=== PATIENT | female | born 2005 | race Caucasian/White ===

== ENCOUNTER → 2023-09-05 13:10 | Outpatient (CLI) | payer OTHER, SELFPAY ==
[2023-09-05 14:34] LABS: Natera Collection Specimen Collected
== END ==
PROVIDERS: Referring Provider Family Medicine; Visit Provider Family Medicine
DX: O99.342 Other mental disorders complicating pregnancy, second trimester (principal)
CPT/HCPCS: 36415

== ENCOUNTER 2023-09-13 10:44 | Emergency (ER) | payer OTHER, SELFPAY ==
[2023-09-13 11:03] VITALS: BP 117/69; PULSE 74; RESP 14; TEMP 36.3; O2SAT 99; BMI 31.0
--- NOTE | 2023-09-13 11:06 | DI.US.S_ITS ---
PROCEDURE: US OB >= 14 WEEKS FETUS LIMITED INDICATIONS: lower back/pelvic pain,15 weeks OUTSIDE/PRIOR DATING DATA: Last menstrual period (LMP): August 28, 2023. LMP-based estimated date of delivery (PAM): March 04, 2024. First dating scan (date and location): Reported as July 20, 2023. Estimated date of delivery (PAM) from first dating scan: Not available. TECHNIQUE: Real-time scanning was performed of the fetus, with image documentation and biometric measurements. Endovaginal scanning: Perform COMPARISON: None. FINDINGS: General: A single living intrauterine gestation is present. Presentation: Breech Placenta: Placental position is anterior, without previa. Amniotic fluid index: Not evaluated. . heart rate: 144 beats per minute. Maternal cervical canal: Closed and 4.2 cm long. Normal lower limit is 2.5 cm. Clinically estimated gestational age: 15 weeks 2 days. IMPRESSION: Single living intrauterine . No evidence of placental abruption. Closed maternal cervix. Dictated by: Nery Honeycutt MD, PhD on 09/13/2023 at 12:34 Approved by: Nery Honeycutt MD, PhD on 09/13/2023 at 12:37
[2023-09-13 11:31] LABS: Add Manual Diff / Slide Review NO; Basophils Absolute Auto 100 /uL (0-100); Basophils Percent Auto 0.6 % (0-2); Eosinophils Absolute Auto 100 /uL (0-450); Eosinophils Percent Auto 1.1 % (2-4); Hematocrit 37.9 % (36-46); Hemoglobin 13.3 g/dL (12.0-16.0); Lymphocytes Absolute Auto 1600 /uL (1100-4500); Lymphocytes Percent Auto 15.3 % (25-40); Mean Corpuscular HGB Conc 35.1 % (30-36); Mean Corpuscular Hemoglobin 30.5 PG (26-34); Mean Corpuscular Volume 86.9 fL (80-100); Monocytes Absolute Auto 600 /uL (0-900); Monocytes Percent Auto 5.9 % (3-14); Neutrophils Absolute Auto 8200 /uL (1500-7000); Neutrophils Percent Auto 77.1 % (50-75); Platelet Count 337 X10^3/uL (150-400); Red Blood Cell Count 4.36 X10^6/uL (4.0-5.2); White Blood Cell Count 10.7 X10^3/uL (4.5-11.0)
[2023-09-13 11:47] LABS: Alanine Aminotransferase 16 IU/L (<35); Albumin Globulin Ratio 1.3 (1.0-2.8); Alkaline Phosphatase 91 U/L (38-126); Aspartate Aminotransferase 26 IU/L (14-36); BUN Creatinine Ratio 15.3 (6-22); Bilirubin Total 0.4 mg/dL (0.2-1.3); Blood Urea Nitrogen 9 mg/dL (7-17); Calcium 9.5 mg/dL (8.4-10.2); Carbon Dioxide 25 mmol/L (22-32); Chloride 103 mmol/L (98-107); Estimated Glomerular Filt Rate > 60 mL/min (>60); Globulin 3.1 g/dL (1.7-4.1); Glucose 80 mg/dL (70-100); HEMOLYSIS < 15 (0-50); Potassium 4.6 mmol/L (3.4-5.1); Sodium 134 mmol/L (137-145); Total Protein 7.1 g/dL (6.3-8.2)
[2023-09-13 12:29] LABS: HCG Quantitative /Beta subunit 40555 mIU/mL
[2023-09-13 13:21] VITALS: BP 111/67; PULSE 68; RESP 14; O2SAT 98
--- NOTE | 2023-09-13 17:21 | ED_ITS ---
HPI - <Ella Aden PA-C - Last Filed: 09/13/23 17:35> General Chief complaint: Vaginal Bleeding Stated complaint: 15wks , back pain, cramping Time Seen by Provider: 09/13/23 11:16 Source: patient Mode of arrival: Ambulatory Limitations: no limitations History of Present Illness HPI Narrative: 18-year-old female who is 15 weeks presents to the ED with a few days of pelvic pain. Patient denies any recent vaginal bleeding or spotting. Patient states she did have 1 instance of vaginal spotting 2 weeks ago which discussed with her OBGYN doctor Dr. Humphrey with no further action. Patient also endorses some lower back pain. Patient denies fever, chills, nausea, vomiting, chest pain, shortness of breath. Related Data Home Medications Medication Instructions Recorded Confirmed vit 168-iron 27 mg-folic cap PO 09/01/23 09/05/23 acid 800 mcg-omega3 235 mg capsule (One-A-Day -1) Allergies Allergy/AdvReac Type Severity Reaction Status Date / Time No Known Drug Allergies Allergy Verified 09/13/23 11:03 Review of Systems <Ella Aden PA-C - Last Filed: 09/13/23 17:35> Constitutional Constitutional: Denies chills, Denies fatigue, Denies fever(s), Denies frequent falls, Denies lethargy and Denies weakness Eyes Eyes: Denies change in vision, Denies eye discharge, Denies irritation and Denies loss of vision ENT Ears, Nose, Mouth, and Throat: Denies change in voice, Denies dizziness, Denies neck pain, Denies sore throat and Denies throat swelling Cardiovascular Cardiovascular: Denies chest pain, Denies irregular heart rhythm, Denies lightheadedness, Denies palpitations, Denies dyspnea, Denies dyspnea on exertion and Denies orthopnea Respiratory Respiratory: Denies cough, Denies dyspnea, Denies dyspnea on exertion and Denies wheezing Gastrointestinal Gastrointestinal: Denies abdominal pain, Denies change in bowel habits, Denies diarrhea, Denies nausea and Denies vomiting Genitourinary Genitourinary: Reports pelvic pain Musculoskeletal Musculoskeletal: Reports back pain, Denies neck pain and Denies numbness Integumentary/Breasts Skin/Breast: Denies pruritus, Denies erythema, Denies rash and Denies wounds Neurologic Neurologic: Denies behavioral changes, Denies confusion, Denies dizziness, Denies frequent falls, Denies loss of vision, Denies numbness and Denies weakness Psychiatric Psychiatric: Denies anxiety, Denies behavioral changes, Denies confusion, Denies depression, Denies homicidal ideation and Denies suicidal ideation Endocrine Endocrine: Denies fatigue, Denies flushing and Denies palpitations Hematologic/Lymphatic Hematologic/Lymphatic: Denies easy bruising Allergic/Immunologic Allergic/Immunologic: Denies urticaria, Denies throat swelling and Denies wheezing Exam <Ella Aden PA-C - Last Filed: 09/13/23 17:35> Narrative Exam Narrative: Const General:?cooperative, healthy appearing and comfortable [facility] Head:?normal to inspection Ears:?hearing grossly normal bilaterally Nose:?external nose normal Face and sinus:?normal facial exam and sinuses nontender Mouth:?oral mucosae normal Throat:?posterior oropharynx normal Eyes General:?appearance normal, both eyes and all related structures Neck Neck:?normal visual inspection and no lymphadenopathy noted Resp Effort & Inspection:?normal respiratory effort Auscultation:?clear to auscultation bilaterally Cardio Rate:?regular rate Rhythm:?regular rhythm GI Abdomen is soft, nondistended. There is mild tenderness to palpation in the pelvic region. Neuro General:?patient alert, patient awake and patient oriented x3 Initial Vital Signs Initial Vital Signs: Vital Signs Temperature 97.4 F L 09/13/23 11:03 Pulse Rate 74 09/13/23 11:03 Respiratory Rate 14 09/13/23 11:03 Blood Pressure 117/69 09/13/23 11:03 Pulse Oximetry 99 09/13/23 11:03 Oxygen Delivery Method Room Air 09/13/23 11:03 <Miguelina Morgan DO - Last Filed: 09/14/23 07:57> Initial Vital Signs Initial Vital Signs: Vital Signs Temperature 97.4 F L 09/13/23 11:03 Pulse Rate 74 09/13/23 11:03 Respiratory Rate 14 09/13/23 11:03 Blood Pressure 117/69 09/13/23 11:03 Pulse Oximetry 99 09/13/23 11:03 Oxygen Delivery Method Room Air 09/13/23 11:03 Course <GIANA Leigh Last Filed: 09/13/23 17:35> Orders Ordered: ED Orders 09/13/23 11:06 US OB >= 14 weeks Fetus Stat 09/13/23 11:17 Complete Blood Count AUTO DIFF Stat Comprehensive Metabolic Panel Stat HCG Quantitative /Beta subunit Stat Type and Screen Stat Vital Signs Vital signs: Vital Signs - 8 hr 09/13/23 11:03 09/13/23 13:21 Temperature 97.4 F L Pulse Rate 74 68 Respiratory Rate 14 14 Blood Pressure 117/69 111/67 Pulse Oximetry 99 98 Oxygen Delivery Method Room Air Room Air <Miguelina Morgan DO - Last Filed: 09/14/23 07:57> Orders Ordered: ED Orders 09/13/23 11:06 US OB >= 14 weeks Fetus Stat 09/13/23 11:17 Complete Blood Count AUTO DIFF Stat Comprehensive Metabolic Panel Stat HCG Quantitative /Beta subunit Stat Type and Screen Stat Vital Signs Vital signs: Vital Signs - 8 hr 09/13/23 11:03 09/13/23 13:21 Temperature 97.4 F L Pulse Rate 74 68 Respiratory Rate 14 14 Blood Pressure 117/69 111/67 Pulse Oximetry 99 98 Oxygen Delivery Method Room Air Room Air MDM - OB/Uterine Contractions <Ella Aden PA-C - Last Filed: 09/13/23 17:35> Lab Data 09/13/23 11:17 09/13/23 11:17 Labs: Lab Results 09/13/23 Range/Units 11:17 WBC 10.7 (4.5-11.0) X10^3/uL RBC 4.36 (4.0-5.2) X10^6/uL Hgb 13.3 (12.0-16.0) g/dL Hct 37.9 (36-46) % MCV 86.9 (80-100) fL MCH 30.5 (26-34) PG MCHC 35.1 (30-36) % RDW 15.0 H (11.6-14.8) % Plt Count 337 (150-400) X10^3/uL Neut % (Auto) 77.1 H (50-75) % Lymph % (Auto) 15.3 L (25-40) % [place] % (Auto) 5.9 (3-14) % Eos % (Auto) 1.1 L (2-4) % Baso % (Auto) 0.6 (0-2) % Neut # (Auto) 8200 H (9029-1369) /uL Lymph # (Auto) 1600 (1966-7604) /uL [place] # (Auto) 600 (0-900) /uL Eos # (Auto) 100 (0-450) /uL Baso # (Auto) 100 (0-100) /uL Sodium 134 L (137-145) mmol/L Potassium 4.6 (3.4-5.1) mmol/L Chloride 103 (98-107) mmol/L Carbon Dioxide 25 (22-32) mmol/L BUN 9 (7-17) mg/dL Creatinine 0.59 (0.52-1.04) mg/dL Estimated GFR > 60 (>60) mL/min BUN/Creatinine Ratio 15.3 (6-22) Glucose 80 (70-100) mg/dL Calcium 9.5 (8.4-10.2) mg/dL Total Bilirubin 0.4 (0.2-1.3) mg/dL AST 26 (14-36) IU/L ALT 16 (<35) IU/L Alkaline Phosphatase 91 (38-126) U/L Total Protein 7.1 (6.3-8.2) g/dL Albumin 4.0 (3.5-5.0) g/dL Globulin 3.1 (1.7-4.1) g/dL Albumin/Globulin Ratio 1.3 (1.0-2.8) HCG, Quant 20492 mIU/mL Blood Type O Positive Antibody Screen Negative Urine Dip Bedside Urine Glucose Negative Bedside Urine Bilirubin - Negative Bedside Urine Ketone - Negative Urine Specific [place] 1.005 Bedside Urine Occult Blood - Negative Bedside Urine pH 6.0 Bedside Urine Protein - Negative Bedside Urine Urobilinogen - Negative Bedside Urine Nitrite - Negative Bedside Urine Leukocytes - Negative Esterase MDM Narrative Medical decision making narrative: 18-year-old female who is 15 weeks presents to the ED with a few days of pelvic pain. Labs, hCG, type and screen, UA and ultrasound were obtained. Labs within normal limits. Urine without UTI. HCG quant is 40,555. Patient is blood type O positive. ultrasound shows a single live intrauterine with a heartbeat of 144 beats per minute. No evidence of placental abruption. Closed maternal cervix. Clinically estimated gestational age is 15 weeks and 2 days. Discussed findings with patient and that some pelvic discomfort and back pain could happened during a normal . Also discussed other etiologies of abdominal pain such as appendicitis that could be developing. Recommend continuing to monitor symptoms and return to the ED if worsening symptoms. Patient agrees to follow-up with OBGYN as soon as possible. Medical records reviewed: Yes <Miguelina Maria Luisa Morgan DO - Last Filed: 09/14/23 07:57> Lab Data Labs: Lab Results 09/13/23 Range/Units 11:17 WBC 10.7 (4.5-11.0) X10^3/uL RBC 4.36 (4.0-5.2) X10^6/uL Hgb 13.3 (12.0-16.0) g/dL Hct 37.9 (36-46) % MCV 86.9 (80-100) fL MCH 30.5 (26-34) PG MCHC 35.1 (30-36) % RDW 15.0 H (11.6-14.8) % Plt Count 337 (150-400) X10^3/uL Neut % (Auto) 77.1 H (50-75) % Lymph % (Auto) 15.3 L (25-40) % [place] % (Auto) 5.9 (3-14) % Eos % (Auto) 1.1 L (2-4) % Baso % (Auto) 0.6 (0-2) % Neut # (Auto) 8200 H (5483-4319) /uL Lymph # (Auto) 1600 (3527-1996) /uL [place] # (Auto) 600 (0-900) /uL Eos # (Auto) 100 (0-450) /uL Baso # (Auto) 100 (0-100) /uL Sodium 134 L (137-145) mmol/L Potassium 4.6 (3.4-5.1) mmol/L Chloride 103 (98-107) mmol/L Carbon Dioxide 25 (22-32) mmol/L BUN 9 (7-17) mg/dL Creatinine 0.59 (0.52-1.04) mg/dL Estimated GFR > 60 (>60) mL/min BUN/Creatinine Ratio 15.3 (6-22) Glucose 80 (70-100) mg/dL Calcium 9.5 (8.4-10.2) mg/dL Total Bilirubin 0.4 (0.2-1.3) mg/dL AST 26 (14-36) IU/L ALT 16 (<35) IU/L Alkaline Phosphatase 91 (38-126) U/L Total Protein 7.1 (6.3-8.2) g/dL Albumin 4.0 (3.5-5.0) g/dL Globulin 3.1 (1.7-4.1) g/dL Albumin/Globulin Ratio 1.3 (1.0-2.8) HCG, Quant 27154 mIU/mL Blood Type O Positive Antibody Screen Negative Urine Dip Bedside Urine Glucose Negative Bedside Urine Bilirubin - Negative Bedside Urine Ketone - Negative Urine Specific [place] 1.005 Bedside Urine Occult Blood - Negative Bedside Urine pH 6.0 Bedside Urine Protein - Negative Bedside Urine Urobilinogen - Negative Bedside Urine Nitrite - Negative Bedside Urine Leukocytes - Negative Esterase Discharge Plan Departure Patient Disposition: Home Clinical Impression: Pelvic pain during Instructions: DI for Abdominal Pain -- Early Activity Restrictions/Additional Instructions: You were evaluated in the ED today for pelvic pain during . Your ultrasound was normal showing a single living with a heartbeat of 144 beats per minute. It is common to experience some pelvic pain and back pain during as your body adapts. Please monitor your pain and return to the ED if you have worsening symptoms. Please follow-up with your OBGYN. Prescriptions: No Action One-A-Day -1 27 mg iron- 800 mcg-235 mg capsule PO Referrals: ProviderTania [Primary Care Provider] - Stand Alone Forms: Patient Portal/API ED Sign-out <Miguelina Morgan DO - Last Filed: 09/14/23 07:57> Cosign ED Attending Maribell Attestation: I was immediately available in the department for consultation.
== END 2023-09-13 13:22 | disposition home or self-care (01) ==
PROVIDERS: Emergency Medicine; Emergency Provider Student in an Organized Health Care Education/Training Program
DX: O26.892 Other specified pregnancy related conditions, second trimester (principal); R10.2 Pelvic and perineal pain; Z3A.15 15 weeks gestation of pregnancy
CPT/HCPCS: 76811; 80053; 81003; 84702; 85025; 86850; 86900; 86901; 99281; 99284

== ENCOUNTER → 2023-10-12 10:55 | Outpatient (CLI) | payer OTHER, SELFPAY ==
--- NOTE | 2023-10-12 10:56 | DI.US.S_ITS ---
PROCEDURE: US OB >= 14 WEEKS FETUS INDICATIONS: Anatomy US OUTSIDE/PRIOR DATING DATA: Last menstrual period (LMP): 08/28/2023. LMP-based estimated date of delivery (PAM): 03/04/2024. First dating scan (date and location): Unknown. Estimated date of delivery (PAM) from first dating scan: Unknown. The calculations are made using the clinical PAM of 03/04/2024. TECHNIQUE: Real-time scanning was performed of the fetus, with image documentation and biometric measurements. COMPARISON: [facility], , OB >= 14 WEEKS FETUS, 09/13/2023, 11:34. FINDINGS: General: A single living intrauterine gestation is present. Presentation: Very. Placenta: Placental position is anterior , without previa. Amniotic fluid index: 14.2 cm, normal range is 5-24 cm. Single deepest vertical pocket is 4.1 cm. heart rate: 153 beats per minute. Maternal cervical canal: 5.1 cm long. Normal lower limit is 2.5 cm. biometrics: Biparietal diameter: 4.7 cm 20 weeks 2 days Head circumference: 17.3 cm 19 weeks 6 days Abdominal circumference: 15.1 cm 20 weeks 3 days Femur length: 2.8 cm 18 weeks 4 days Clinically estimated gestational age: 19 weeks 3 days Composite gestational age from present scan: 19 weeks 6 days Estimated weight and percentile: 302 g 56 percentile Anatomic survey: Neuro: Ventricles are non-dilated at less than 10 mm. Cisterna magna is normal at 3-11 mm. Cerebellum is normal in size and morphology. Nuchal skin fold: Normal at less than 6 mm between 14-21 weeks gestational age. Face: Nose and lips, facial profile are normal. Spine: No evidence for spina bifida. Heart: 4-chambered heart is present, with normal ventricular outflow tracts. Diaphragm: Diaphragm is intact. Stomach: Left-sided stomach is present. Kidneys: No hydronephrosis although renal pelvis is at the upper limits of normal.. Normal is less than 5 mm in 2nd trimester, less than 7 mm in 3rd trimester. Cord: 3-vessel cord has orthotopic insertion. Bladder: Normal in size. Extremities: All 4 extremities identified. IMPRESSION: Single live intrauterine with ultrasound gestational age of 19 weeks 6 days. We strive to produce accurate, complete, and clear reports of imaging services. To assist us in improving patient care, this report was composed using standard report templates and voice recognition software. Therefore, it may contain abnormal punctuation, insertions and/or omissions. Occasional wrong-word or sound-alike substitutions may occur. Though we review the report and make efforts to correct it, we do recommend that the report be read carefully in proper context to recognize any text inaccuracies. Dictated by: Maeve Diana M.D. on 10/12/2023 at 16:01 Approved by: Maeve Diana M.D. on 10/12/2023 at 16:06
== END ==
LOC: US 10:55
PROVIDERS: Referring Provider Family Medicine; Visit Provider Family Medicine
DX: Z34.00 Encounter for supervision of normal first pregnancy, unspecified trimester (principal); Z3A.19 19 weeks gestation of pregnancy
CPT/HCPCS: 76811

== ENCOUNTER → 2023-12-05 12:21 | Outpatient (CLI) | payer OTHER, SELFPAY ==
[2023-12-06 12:14] LABS: Varicella IgG Antibody Reactive (Non Reactive)
== END ==
PROVIDERS: Referring Provider Family Medicine; Visit Provider Family Medicine
DX: Z34.00 Encounter for supervision of normal first pregnancy, unspecified trimester (principal)
CPT/HCPCS: 36415; 86787

== ENCOUNTER → 2023-12-26 09:06 | Outpatient (CLI) | payer OTHER, SELFPAY ==
[2023-12-26 11:24] LABS: GTT (PREG) 1 Hour PP 50gm Dose 118 mg/dL (76-139)
== END ==
PROVIDERS: Referring Provider Family Medicine; Visit Provider Family Medicine
DX: Z34.03 Encounter for supervision of normal first pregnancy, third trimester (principal); Z3A.30 30 weeks gestation of pregnancy
CPT/HCPCS: 82950

== ENCOUNTER → 2024-01-23 12:03 | Outpatient (CLI) | payer OTHER, SELFPAY | PROVIDERS: Visit Provider Family Medicine | DX: N89.8 Other specified noninflammatory disorders of vagina (principal) | CPT/HCPCS: 87081; 87210; 87491; 87563; 87591 ==

== ENCOUNTER → 2024-02-06 11:31 | Outpatient (CLI) | payer OTHER, SELFPAY ==
[2024-02-07 11:42] LABS: Strep Grp B PCR NEG for Grp B Strep
== END ==
PROVIDERS: Visit Provider Family Medicine
DX: Z36.85 Encounter for antenatal screening for Streptococcus B (principal)
CPT/HCPCS: 87653

== ENCOUNTER 2024-03-02 14:00 | Observation (INO) | payer OTHER, SELFPAY ==
--- NOTE | 2024-03-02 18:22 | P.TNLD_ITS ---
Visit Information Visit Information Date of evaluation: 03/02/24 Primary OB Provider: Lily Humphrey Reason for Evaluation: Yes rule out labor Comments/Additional reasons for admission: 19 yo G1 presenting at 39w5d for labor rule out. Contractions occuring every 5 min. + FM. Some discharge but not large gushes of fluid. [facility] Surgical History (Updated 09/01/23 @ 15:36 by Leticia Tolliver, RN) [place] teeth extracted (~2022) History of ankle surgery (~2021) Family History (Updated 09/01/23 @ 15:40 by Leticia Tolliver, RN) Mother Heart disease Osteoporosis Grandfather Heart disease Colon cancer Father Diabetes mellitus Uncle Diabetes mellitus Grandmother DVT (deep venous thrombosis) Breast cancer Social History marital status: unmarried,single number of children: 0 household members: significant other lives independently: Yes caregiver/support person: No housing: other pets and animals: No education level: other occupational status: employed current occupational exposures/hazards: No (not while ) special noam needs: No travel history: recent seatbelt use: always water heater temp set < 120 deg: Yes firearms in home: No do you feel safe at home: Yes Smoking Status: Never smoker second hand exposure: No alcohol intake: never substance use type: does not use during the past year weight has: remained stable well-balanced diet: about half the time daily servings fruits/ve-4 caffeine: Yes Type(s) of exercise: walking, weight lifting and running Exam Narrative Exam Narrative: Gen: well appearing, NAD, smiling, talking through contractions Skin: no rashes or pallor Abd: Gravid MSK: scant edema Evaluation Evaluation Baseline heart rate: 130 Variability: Moderate (11-25) monitor accelerations: Present Monitor Decelerations: Absent Contraction Frequency (minutes): 9 Uterine Contraction Intensity: Mild Category of Tracing: Reactive Status: Category l Cervical dilation (cm): 2 Cervical effacement (%): 50 station: -2 Diagnosis, Plan/Disposition Plan/Disposition Plan: 19 yo G1 presenting for labor assessment. Cervical check 50/-2, pt walked for 2 hours and SVE unchanged. FHT Cat 1, TOCO showing irregular contractions every 5-10 min. Pt talking through contractions. - d/c home - return precautions reviewed OB Disposition: home
== END 2024-03-02 18:21 | disposition home or self-care (01) ==
PROVIDERS: Admitting Provider Family Medicine; Referring Provider Family Medicine; Visit Provider Family Medicine
DX: O47.1 False labor at or after 37 completed weeks of gestation (principal); Z3A.39 39 weeks gestation of pregnancy
CPT/HCPCS: 59025; 84112; G0378; G0379

== ENCOUNTER 2024-03-05 16:47 | Observation (INO) | payer OTHER, SELFPAY | END 2024-03-05 18:58 | disposition home or self-care (01) | LOC: LABOR 16:49 | PROVIDERS: Admitting Provider Family Medicine; Referring Provider Family Medicine; Visit Provider Family Medicine | DX: O47.1 False labor at or after 37 completed weeks of gestation (principal); Z3A.40 40 weeks gestation of pregnancy | CPT/HCPCS: 59025; 59050; G0378; G0379 ==

== ENCOUNTER 2024-03-05 21:40 | Inpatient (IN) | payer OTHER, SELFPAY ==
[2024-03-05 22:36] VITALS: BP 129/85
[2024-03-05] MEDS: LACTATED RINGERS 1,000 ML 100 ML IV (23:00)
[2024-03-05 23:12] LABS: Add Manual Diff / Slide Review NO; Basophils Absolute Auto 100 /uL (0-100); Basophils Percent Auto 0.7 % (0-2); Eosinophils Absolute Auto 200 /uL (0-450); Eosinophils Percent Auto 1.2 % (2-4); Hematocrit 38.1 % (36-46); Hemoglobin 12.6 g/dL (12.0-16.0); Lymphocytes Absolute Auto 2500 /uL (1100-4500); Lymphocytes Percent Auto 18.1 % (25-40); Mean Corpuscular HGB Conc 33.1 % (30-36); Mean Corpuscular Hemoglobin 28.7 PG (26-34); Mean Corpuscular Volume 86.7 fL (80-100); Monocytes Absolute Auto 900 /uL (0-900); Monocytes Percent Auto 6.8 % (3-14); Neutrophils Absolute Auto 9900 /uL (1500-7000); Neutrophils Percent Auto 73.2 % (50-75); Platelet Count 310 X10^3/uL (150-400); Red Cell Distribution Width 15.9 % (11.6-14.8); White Blood Cell Count 13.6 X10^3/uL (4.5-11.0)
--- NOTE | 2024-03-06 00:40 | PM.AN.REGBLK ---
Regional [facility] <Karen Javier CRNA - Last Filed: 03/07/24 08:18> Pre-procedure Procedure: Continuous Lumbar Epidural for L&D Attending OB provider: Celina Ramsey PMH/ROS narrative: , ruptured, spontaneous labor. ROS neg PSH/Anesthesia history narrative: None Exam narrative: Mall 2, good airway ASA Class: II Labs: Hct 38.1 % (36-46) 03/05/24 23:00 Plt Count 310 X10^3/uL (150-400) 03/05/24 23:00 Medications: Current Medications Generic Name Dose Route Start Last Admin Trade Name Freq PRN Reason Stop Dose Admin Calcium Carbonate 1,000 mg 03/05/24 22:35 Calcium Carbonate 500 Mg Tab PO Q2HR PRN Dyspepsia Carboprost Tromethamine 250 mcg 03/05/24 22:35 Carboprost 250 Mcg/Ml Ampul IM Q90M PRN Bleeding Fentanyl 50 mcg 03/05/24 22:35 Fentanyl 100 Mcg/2 Ml Inj IV Q1H PRN Pain, Moderate (4-6) Lactated Ringer's 1,000 mls @ 100 mls/hr 03/05/24 22:45 03/05/24 23:00 Lactated Ringers IV 03/06/24 08:44 100 mls/hr CONT BUCK Administration Oxytocin/Lactated Ringer's 30 unit in 500 mls @ 200 mls/hr 03/05/24 22:35 Oxytocin Premix IV CONT PRN Bleeding Protocol Tranexamic Acid 1,000 mg/ 100 mls @ 600 mls/hr 03/05/24 22:35 Sodium Chloride IV NOW PRN Bleeding Oxytocin/Lactated Ringer's 30 unit in 500 mls @ 2 mls/hr 03/05/24 22:45 Oxytocin Premix IV TITRATE BUCK Protocol 2 MILLIUNIT/MIN Lidocaine HCl 20 ml 03/05/24 22:35 Lidocaine 1% 20 Ml INJ INTRA-OP PRN Post Delivery Methylergonovine Maleate 0.2 mg 03/05/24 22:35 Methylergonovine 0.2 Mg Tablet PO Q6HR PRN Heavy Bleeding Methylergonovine Maleate 0.2 mg 03/05/24 22:35 Methylergonovine 0.2 Mg/Ml Vial IM NOW PRN Bleeding Mineral Oil 30 ml 03/05/24 22:35 Mineral Oil 30 Ml Udc TOP PRN PRN Version Misoprostol 800 mcg 03/05/24 22:35 Misoprostol 200 Mcg Tablet VT NOW PRN Bleeding Misoprostol 400 mcg 03/05/24 22:35 Misoprostol 200 Mcg Tablet SL NOW PRN Bleeding Naloxone HCl 0.2 mg 03/05/24 22:35 Naloxone 0.4 Mg/Ml Vial IV Q2MIN PRN Opiate Reversal Ondansetron HCl 4 mg 03/05/24 22:35 Ondansetron 4 Mg/2 Ml Inj IV Q4HR PRN Nausea And Vomiting Oxytocin 10 unit 03/05/24 22:35 Oxytocin 10 Unit/Ml Vial IM NOW PRN Bleeding Allergies: Allergies Allergy/AdvReac Type Severity Reaction Status Date / Time No Known Drug Allergies Allergy Verified 03/05/24 11:19 Procedure Insertion date: 03/05/24 Insertion time: 23:47 Prep/Local: 1% lidocaine (chloraprep skin prep, dry x 3 min) Interspace: L4-5 Patient position: sitting Needle: 17 gauge Tuohy Loss of resistance with: saline GALEN at (cm): 8 Catheter placed at SKIN (cm): 15 Catheter in SPACE (cm): 7 Sensory level: T10 Insertion: No CSF, No Blood, No Paresthesia with insertion, No Paresthesia with injection and No Test dose reaction Initial Medications TEST DOSE time: 00:06 BOLUS DOSE time: 00:17 BOLUS DOSE (mL): 5 BOLUS DOSE med: other (pump solution) Infusion INFUSION: 0.125% bupivacaine and with fentanyl 2 mcg/mL Initial rate (mL/hr): 8 Post-procedure Anesthesia date START: 03/05/24 Anesthesia time START: 23:47 <Dalila Bloom CRNA - Last Filed: 03/06/24 13:57> Infusion Subsequent interventions: 1010: Pt using PCEA, at 9cm, c/o rectal pain with contractions, tearful. On pitocin gtt now. Increased basal rate to 10mL/hr and top off of 5mL 2% Lidocaine. 1017: Now complete. 10mL 0.25% bupi top off gven. 1352: Called for top off to assist with pain with forceps delivery by Dr. Barajas. 5mL 2% lidocaine given. Post-procedure Anesthesia date END: 03/06/24 Anesthesia time END: 13:57 Post-procedure Anesthesia Assessment: Yes CV function: HR/BP stable, Yes Resp function: RR/sat/airway adequate, Yes Post-op hydration adequate, Yes Pain control adequate, Yes Nausea & vomiting absent, Yes Temperature > 36 C, Yes Mental status appropriate and No Anesthesia complications
[2024-03-06] MEDS: AMPICILLIN 2,000 MG in SODIUM CHLORIDE 0.9% 100 ML 200 MG IV (01:24)
--- NOTE | 2024-03-06 02:03 | P.HPOB_ITS ---
OB HPI Date/Time Date of admission: 03/05/24 Date Patient Seen: 03/06/24 Time Patient Seen: 01:40 History of Present Condition Chief complaint: labor Date of Last Menstrual Period: 05/29/23 PAM Calculator 2 Estimated Delivery Date Method Current WG Current Estimate 03/04/24 LMP (Uncertain) 40w 2d Other Estimates 03/03/24 Ultrasound #1 40w 3d Estimated Gestational Age (weeks): 40w2d : 1 Para: 0 Narrative: 19 yo G1 presenting at 40w2d with contractions. She had a membrane sweep in clinic today. She was seen in triage earlier tonight at 260/-3. She then was discharged and returned and was 4-/-1 wtih a bulging bag. care: good care Dating criteria OB: LMP confirmed by 1st trimester US Ultrasounds: normal 1st trimester US and normal mid trimester US Obstetrical complications: none Medical complications OB: none Preadmission Labs Last OB Lab Results: 2 Blood Type O Positive 03/05/24 23:00 Antibody Screen Negative 03/05/24 23:00 Hct 38.1 % (36-46) 03/05/24 23:00 Hgb 12.6 g/dL (12.0-16.0) 03/05/24 23:00 VZV IgG Antibody Reactive (Non Reactive) 12/05/23 12:52 Glucose 1 Hr 50 gm 118 mg/dL (76-139) 12/26/23 10:45 Group B Strep (PCR) Neg for grp b strep 02/06/24 11:45 Glucose Tolerance Testin hr (118) -: Chlamydia screen: negative, Gonorrhea screen: negative and Urine: positive (GBS) Genetic Screens: Quad screen: Normal (low risk male ) External Labs -: RPR/VDLR: negative and Urine: positive (GBS) -: Rubella: immune and Varicella: immune Evaluation Evaluation Baseline heart rate: 120 Variability: Moderate (11-25) monitor accelerations: Present Monitor Decelerations: Variable (occassional) Contraction Frequency (minutes): 3 Category of Tracing: Reactive Status: Category ll Dilation (cm): 5 Effacement (%): 80 Dilation: >/=5 cm Effacement: >/=80% station: -1 Position of cervix: mid Consistency: soft Mcgarry score: 11 [facility] Surgical History (Updated 09/01/23 @ 15:36 by Leticia Tolliver, RN) [place] teeth extracted (~2022) History of ankle surgery (~2021) Family History (Updated 09/01/23 @ 15:40 by Leticia Tolliver, RN) Mother Heart disease Osteoporosis Grandfather Heart disease Colon cancer Father Diabetes mellitus Uncle Diabetes mellitus Grandmother DVT (deep venous thrombosis) Breast cancer Social History marital status: unmarried,single number of children: 0 household members: significant other lives independently: Yes caregiver/support person: No housing: other pets and animals: No education level: other occupational status: employed current occupational exposures/hazards: No (not while ) special noam needs: No travel history: recent seatbelt use: always water heater temp set < 120 deg: Yes firearms in home: No do you feel safe at home: Yes Smoking Status: Never smoker second hand exposure: No alcohol intake: never substance use type: does not use during the past year weight has: remained stable well-balanced diet: about half the time daily servings fruits/ve-4 caffeine: Yes Type(s) of exercise: walking, weight lifting and running Meds Home Medications and Allergies Home Medications Medication Instructions Recorded Confirmed Type vit 168-iron 27 mg-folic 1 cap PO DAILY 09/01/23 03/06/24 History acid 800 mcg-omega3 235 mg capsule (One-A-Day -1) Allergies Allergy/AdvReac Type Severity Reaction Status Date / Time No Known Drug Allergies Allergy Verified 03/05/24 11:19 Review of Systems Review of Systems Narrative: + contractions + FM - DAILEY OB Exam Narrative Exam Narrative: GEn: well appearing ABd: gravid MSK: scant edema, symmetric Objective Labs 03/05/24 23:00 Labs: Laboratory Results - last 24 hr 03/05/24 23:00 WBC 13.6 H RBC 4.40 Hgb 12.6 Hct 38.1 MCV 86.7 MCH 28.7 MCHC 33.1 RDW 15.9 H Plt Count 310 Neut % (Auto) 73.2 Lymph % (Auto) 18.1 L Taney % (Auto) 6.8 Eos % (Auto) 1.2 L Baso % (Auto) 0.7 Neut # (Auto) 9900 H Lymph # (Auto) 2500 Taney # (Auto) 900 Eos # (Auto) 200 Baso # (Auto) 100 Blood Type O Positive Antibody Screen Negative Assessment and Plan Assessment and Plan Assessment and Plan narrative: 19 yo G1 presenting at 40w2d with contractions. She is progressing well and now has an epidural in place. Will manage expectantly #GIL: - Admit to LD - CBC, TS - GBS bacteriuria in early - start ppx - epidural in place Time-Based Coding :: [TOTAL MINUTES] spent with patient and on the chart (including review of chart, obtaining history, exam, reviewing outside data, placing orders, documenting exam and treatment plan, and counseling patient) on [DATE].
[2024-03-06] MEDS: LACTATED RINGERS 1,000 ML 100 ML IV (03:39)
--- NOTE | 2024-03-06 03:39 | PM.OBPNLAB ---
Date/Time Date Patient Seen: 03/06/24 Time Patient Seen: 03:39 Pain Control Pain control: tolerating well and epidural Comments: sleeping upon entering the room, feeling some pressure. Pelvic Exam Dilation (cm): 9 Effacement (%): 80 station: -1 Amniotic membrane status: Bulging Contractions Contractions on admission: regular Monitor mode: External Contraction frequency (min): 4 Contraction pattern: Regular Contraction intensity: Moderate Status status: Category ll Heart Rate Baseline: 140 Monitor Accelerations: Present Monitor Decelerations: Early Monitor Variability: Moderate Assessment and Plan Assessment: active labor Plan: continuous present management Comments: 19 yo G1 admitted for GIL, being managed expectantly. Now /-1 with bulging bag/ 1 hour away from Gbs ppx adequate. FHt reassuring overall, with early decels occuring and good variability between. Pt comfortable with epidural, sleeping before exam. Will start next bag of abx then plan for ROM if she hasnt SROM'ed by that time.
[2024-03-06] MEDS: AMPICILLIN 1,000 MG in SODIUM CHLORIDE 0.9% 100 ML 200 MG IV ×3 (05:20→13:39)
[2024-03-06] MEDS: ONDANSETRON 4 MG/2 ML INJ IV (06:12)
--- NOTE | 2024-03-06 07:06 | PM.OBPNLAB ---
Date/Time Date Patient Seen: 03/06/24 Time Patient Seen: 07:06 Pain Control Pain control: epidural Comments: tolerating pain well [facility] epidural Pelvic Exam Dilation (cm): 9 Effacement (%): 90 station: -1 Amniotic membrane status: Ruptured Comments: AROM at 07:01, clear fluid Contractions Contractions on admission: regular Monitor mode: External Contraction frequency (min): 4 Contraction pattern: Regular Contraction intensity: Moderate Status status: Category ll Heart Rate Baseline: 140 Monitor Accelerations: Present Monitor Decelerations: Early and Variable Monitor Variability: Moderate Assessment and Plan Assessment: active labor Comments: 19 yo admitted wt GIL. She has been managed expectantly. FHT wtih early and occasional variable decels. AROM completed at 07:01 [facility] clear fluids. SVE 9/90/-1, cervix anterior and to maternal right. Will work on position changes for dropping baby down and moving towards complete. Epidural controlling pain well.
[2024-03-06] MEDS: OXYTOCIN PREMIX 30 UNIT/500 ML PLAST..BAG IV (09:05)
[2024-03-06] MEDS: ACETAMINOPHEN 325 MG TABLET 650 MG PO (09:41)
[2024-03-06] MEDS: FENT 2MCG/ML BUPIV 0.125% EPI 200 MCG/100 ML PLAST..BAG 8 MCG EPIDURAL (09:52)
--- NOTE | 2024-03-06 14:38 | PM.OBPRVD ---
Labor & Delivery Delivery date: 03/06/24 Delivery Time: 13:52 Delivery monitor: external FHT Route of delivery: vacuum extraction Indication for instrumentation: maternal exhaustion ( malposition + maternal exhaustion ) L&D Laceration Description: Labial (shallow right labial ) Delivery repair: vicryl Estimated blood loss (mL): 250 Anesthesia Type: Epidural Narrative: PROCEDURE: 19 presented with contractions at 40w2d and was admitted to Labor and Delivery. She was managed expectantly. The patient progressed and was started on GBS ppx for hx of GBS bacteriuria. AROM occured at 07:01 with clear fluid. Pain was controlled with and epidural. She progressed but contractions tapered so Pitocin was started for augmentation. She began pshing at 10:24am. She made slow but steady progress until she was . At +2 station she continued to push but had minimal descent for approximately 60 min. recurrent decelerations were noted with contractions but with good recovery so pushing was continued. After she failed to descend significantly, and with continued decelerations, decision made to place vacuum. OB lesson instructor, Dr. Barajas, called to bedside to assist. Vacuum was placed at +2-3 station. Position was JOO wtih approximately 15 degrees rotation asynclitic. There were 4 pulls with vacuum inflated to green, never exceeding 500mmHg. Four pulls were performed with no pop-offs and head delivered out of JOO. A double nuchal cord was noted and reduced at the perineum. Viable male infant was delivered with APGARs of 8/9 at 13:52 via vacuum assisted vaginal delivery. The cord was cut and clamped after 60 second delay. The placenta delivered with gentle cord traction, and appeared complete. The perineum and vagina were inspected with a shallow hemostatic laceration superior to the urethral opening which was not repaired and a shallow right labial laceration which was repaired in the usual fashion. Needle and sponge counts were correct.? The vagina was inspected and no items were left in situ. PREPROCEDURE DIAGNOSIS: Intrauterine at 40w2d GBS bacteriuria, adequate ppx RH positive POSTPROCEDURE DIAGNOSIS: Intrauterine at 40w2d, delivered Same as preprocedure s/p vacuum extraction Plan for aftercare: Routine care
[2024-03-06] MEDS: LANOLIN OINT 7 GM 1 APPLIC TOP (16:50)
[2024-03-06] MEDS: DERMOPLAST SPRAY 20% 60 ML 1 SPRAY TOP (16:51)
[2024-03-06] MEDS: WITCH HAZEL/GLYCERIN PADS 1 EACH TOP (16:51)
[2024-03-06] MEDS: IBUPROFEN 600 MG TABLET PO (16:53)
[2024-03-07] MEDS: IBUPROFEN 600 MG TABLET PO ×3 (02:09→14:39)
[2024-03-07] MEDS: ACETAMINOPHEN 325 MG TABLET 650 MG PO ×3 (02:10→14:39)
--- NOTE | 2024-03-07 09:48 | P.DS_ITS ---
Discharge Providers Provider Date of admission: 03/05/24 21:40 Discharge Date: 03/07/24 Primary care physician: Tania DENNISON Provider Consults: 03/05/24 22:36 Consult to Anesthesiology Urgent Comment: Consulting Provider: Anesthesiologist Reason for consultation: Epidural 03/07/24 15:06 Consult to [employer] Routine Comment: Discharge provider: Lily Humphrey MD Summary Hospital Course Date Patient Seen: 03/07/24 Time Patient Seen: 07:40 Hospital Course: 19 who presented with contractions at 40w2d and was admitted to Labor and Delivery. She was managed expectantly. The patient progressed and was started on GBS ppx for hx of GBS bacteriuria. AROM occured at 07:01 with clear fluid. Pain was controlled with and epidural. She progressed but contractions tapered so Pitocin was started for augmentation. She began pshing at 10:24am. She made slow but steady progress until she was . At +2 station she continued to push but had minimal descent for approximately 60 min. recurrent decelerations were noted with contractions but with good recovery so pushing was continued. After she failed to descend significantly, and with continued decelerations, decision made to place vacuum. OB customer professional, Dr. Barajas, called to bedside to assist. Vacuum was placed at +2-3 station. Position was JOO wtih approximately 15 degrees rotation asynclitic. There were 4 pulls with vacuum inflated to green, never exceeding 500mmHg. Four pulls were performed with no pop-offs and head delivered out of JOO. A double nuchal cord was noted and reduced at the perineum. Viable male infant was delivered with APGARs of 8/9 at 13:52 via vacuum assisted vaginal delivery. The cord was cut and clamped after 60 second delay. The placenta delivered with gentle cord traction, and appeared complete. The perineum and vagina were inspected with a shallow hemostatic laceration superior to the urethral opening which was not repaired and a shallow right labial laceration which was repaired in the usual fashion. pain was well controlled with oral medications. Bleeding was as expected. She is . No sx of anemia. Not sure what she would like to do for control, but considering nexplanon. Will decide before 6 week PP visit and send a msg if wanting IUD or nexplanon Time Spent with Patient Time attestation: Total time spent providing and/or coordinating discharge services: Objective Labs 03/05/24 23:00 Exam Narrative Exam Narrative: GEn: well appearing Eyes: EOMI Pulm: breathing comfortably on RA Abd: fundus firm below umbilicus MSK: Scant bilaterally edema Discharge Plan Discharge Plan Patient Disposition: Home Discharge orders & Medications Prescriptions: Continued One-A-Day -1 27 mg iron- 800 mcg-235 mg capsule 1 cap PO DAILY Discontinued Adacel(Tdap Adolesn/Adult)(PF) 2 Lf-(2.5-5-3-5 mcg)-5Lf/0.5 mL suspension 0.5 ml IM ONCE Qty: 0.5 0RF Follow up/Referrals: ProviderTania [Primary Care Provider] - Lily Humphrey MD [Physician] - 6 Weeks (6 week follow up appointment with Lily Humphrey on April 18, @4:30pm.) Visit Report/Discharge Packet Stand Alone Forms: Patient Portal/API, Stroke Signs & Symptoms Discharge Data Primary Care Provider: ProviderTania
== END 2024-03-07 17:43 | disposition home or self-care (01) | DRG 807 ==
PROVIDERS: Admitting Provider Family Medicine; Referring Provider Family Medicine; Visit Provider Family Medicine
DX: O99.824 Streptococcus B carrier state complicating childbirth (principal); Z37.0 Single live birth; Z3A.40 40 weeks gestation of pregnancy; Z67.40 Type O blood, Rh positive; O76 Abnormality in fetal heart rate and rhythm complicating labor and delivery; O70.0 First degree perineal laceration during delivery; O32.9XX0 Maternal care for malpresentation of fetus, unspecified, not applicable or unspecified; O75.81 Maternal exhaustion complicating labor and delivery; O47.1 False labor at or after 37 completed weeks of gestation
CPT/HCPCS: 36415; 59025; 59050; 85025; 86850; 86900; 86901; G0378; G0379; J0290; J1100; J1885; J2405; J2590; J3010